=== PATIENT | female | born 1990 | race Caucasian/White ===

== ENCOUNTER 2016-10-27 21:35 | Emergency (ER) | payer MEDICAID ==
[2016-10-27 22:30] LABS: BASOPHIL % 0.7 % (0-2); PLATELET COUNT 284 x10^3mcL (130-400); RED CELL DISTRIBUTION WIDTH 13.1 % (11.5-14.5)
[2016-10-27 22:39] LABS: CALCIUM 8.6 mg/dL (8.5-10.1); CARBON DIOXIDE 24.8 mmol/L (21-32); CHLORIDE SERUM 105 mmol/L (98-107); CREATININE SERUM 0.9 mg/dL (0.6-1.0); GFR1 > 60 mL/min; GLUCOSE SERUM 110 mg/dL (74-106); POTASSIUM SERUM 3.7 mmol/L (3.5-5.1); SODIUM SERUM 139 mmol/L (136-145)
[2016-10-27 22:43] LABS: ALBUMIN 3.6 g/dL (3.4-5.0); ALKALINE PHOSPHATASE 52 U/L (46-116); ALT/SGPT 29 U/L (14-59); AMYLASE 58 U/L (25-115); AST/SGOT 14 U/L (15-37); BILIRUBIN TOTAL 0.3 mg/dL (0.20-1.00); LIPASE 233 IU/L (73-393); TOTAL PROTEIN, SERUM 7.3 g/dL (6.4-8.2)
[2016-10-27 23:55] VITALS: BP 107/65
== END 2016-10-27 23:55 | disposition home or self-care (01) ==
LOC: ED 21:35
PROVIDERS: Emergency Medicine
DX: K21.9 Gastro-esophageal reflux disease without esophagitis (principal); K52.9 Noninfective gastroenteritis and colitis, unspecified; J45.909 Unspecified asthma, uncomplicated; E11.9 Type 2 diabetes mellitus without complications
CPT/HCPCS: 83880; C9113; J2405; J2765; J7030

== ENCOUNTER 2017-04-22 09:40 | Emergency (ER) | payer SELFPAY ==
[~2017-04-22] VITALS: Ht 157.5 cm; Wt 68.3 kg
[2017-04-22 09:50] VITALS: BP 125/57; Ht 157.5 cm; Wt 68.3 kg
== END 2017-04-22 12:16 | disposition home or self-care (01) ==
LOC: ED 09:40
DX: S90.32XA Contusion of left foot, initial encounter (principal); W20.8XXA Other cause of strike by thrown, projected or falling object, initial encounter; Y93.89 Activity, other specified; Y92.89 Other specified places as the place of occurrence of the external cause; Y99.8 Other external cause status

== ENCOUNTER 2018-08-15 20:23 | Emergency (ER) | payer SELFPAY ==
[~2018-08-15] VITALS: Ht 160 cm; Wt 71.7 kg
[2018-08-15 20:43] VITALS: BP 112/70; Ht 160 cm; Wt 71.7 kg
== END 2018-08-15 22:17 | disposition home or self-care (01) ==
LOC: ED 20:23
DX: R51 Headache (principal); R20.2 Paresthesia of skin; R09.89 Other specified symptoms and signs involving the circulatory and respiratory systems; J45.909 Unspecified asthma, uncomplicated